=== PATIENT | female | born 2000 | race Two or more races ===

== ENCOUNTER 2023-08-12 00:11 | Emergency (ER) | payer MEDICAID, OTHER ==
[~2023-08-12] VITALS: Ht 162.6 cm; Wt 58.5 kg
[2023-08-12 00:38] VITALS: BP 132/75; PULSE 83; TEMP 99
[2023-08-12] MEDS ORDERED: AUG875T PO (02:24)
[2023-08-12] MEDS ORDERED: BENZ200C64 PO (02:24)
[2023-08-12] MEDS ORDERED: ALBUAER3 IN (02:24)
[2023-08-12] MEDS ORDERED: PRED20TA2 PO (02:24)
[2023-08-12 02:33] VITALS: RESP 18; O2SAT 97
[2023-08-12] MEDS: ALBUTEROL SULF 2.5 MG/0.5ML(0.5%) NEB SOLN NEB ONE (02:33)
[2023-08-12] MEDS: IPRATROPIUM BROM 0.5 MG/2.5ML INH SOL NEB ONE (02:33)
[2023-08-12] MEDS: cefTRIAXone SOD 1,000 MG VL IM ONE (03:51)
[2023-08-12] MEDS: DexAMETHasone SOD PHOS 10MG/1ML VIAL INJ IM ONE (03:52)
== END 2023-08-12 05:15 | disposition home or self-care (01) ==
LOC: ER 00:11
DX: J18.9 Pneumonia, unspecified organism (principal)
CPT/HCPCS: 71045; 94640; 96372; 99284; J0696; J1100; J7644